=== PATIENT | female | born 1955 | race Two or more races ===

== ENCOUNTER 2018-05-29 14:10 | Inpatient (IN) | payer BC, OTHER ==
[~2018-05-29] VITALS: Ht 165.1 cm; Wt 81.0 kg
[2018-05-29 15:56] LABS: Alanine Aminotransferase 61 U/L (13-56); Anion Gap 12 (5-15); Aspartate Aminotransferase 31 U/L (15-37); BUN/Creatinine Ratio 7.6; Blood Urea Nitrogen 8 mg/dL (7-18); Calcium 8.8 mg/dL (8.5-10.1); Carbon Dioxide 23 mmol/L (21-32); Chloride 93 mmol/L (98-107); GFR African American 68 mL/min; GFR Non-African American 56 mL/min; Glucose 160 mg/dL (74-106); Magnesium 2.1 mg/dL (1.6-2.6); Potassium 3.4 mmol/L (3.5-5.1); Sodium 128 mmol/L (136-145)
[2018-05-29 16:00] LABS: Alkaline Phosphatase 85 U/L (45-117); Bilirubin, Total 1.2 mg/dL (0.2-1.0); Total Protein 7.8 g/dL (6.4-8.2)
[2018-05-29 16:10] LABS: Urine Bacteria FEW /hpf (None Seen); Urine Blood Negative /uL (Negative); Urine Specific Gravity 1.007 (1.001-1.035); Urine WBC 3 /hpf (0 - 5)
[2018-05-29 16:33] LABS: Basophils # (auto) 0 uL; Basophils % (auto) 0.4 % (0.0-2.0); Eosinophils # (auto) 0.1 uL; Eosinophils % (auto) 0.9 % (0.0-7.0); Hematocrit 43.1 % (36.0-46.0); Hemoglobin 14.7 g/dL (12.2-16.2); Lymphocytes # (auto) 1.8 uL; Lymphocytes % (auto) 26.4 % (10.0-50.0); Mean Corpuscular Hemoglobin 30.4 pg (28.0-32.0); Mean Corpuscular Hgb Conc. 34.2 g/dL (32.0-36.0); Mean Corpuscular Volume 89.1 fL (80.0-100.0); Monocytes # (auto) 0.7 uL; Monocytes % (auto) 10.2 % (0.0-12.0); Neutrophils # (auto) 4.3 uL; Neutrophils % (auto) 62.1 % (37.0-80.0); Nucleated Red Blood Cells % 0.3 %; Platelet Count (auto) 276 10^3/uL (140-450); Red Blood Cells 4.83 10^6/uL (4.0-5.20); Red Cell Distribution Width 13.1 % (11.8-14.3); White Blood Cell 6.9 10^3/uL (4.4-10.8)
[2018-05-29] MEDS ORDERED: SODIUM CHLORIDE 0.9% 500 ML IV ONE (17:10)
[2018-05-29] MEDS ORDERED: ONDANSETRON HCL 4 MG/2 ML VIAL IV ONE (17:15)
[2018-05-29] MEDS ORDERED: LORazepam 0.5 MG TAB PO ONE (17:15)
[2018-05-29] MEDS ORDERED: MORPHINE SULF INJ 2 MG/ML SYRINGE 1ML IV ONE (17:15)
[2018-05-30] MEDS ORDERED: ACETAMINOPHEN 500 MG TAB PO PRN (00:15)
[2018-05-30] MEDS ORDERED: POTASSIUM CHL 20 Meq TABLET PO ONE (00:15)
[2018-05-30] MEDS ORDERED: MORPHINE SULF INJ 2 MG/ML SYRINGE 1ML IV PRN (00:15)
[2018-05-30] MEDS ORDERED: ONDANSETRON HCL 4 MG/2 ML VIAL IV PRN (00:15)
--- NOTE | 2018-05-30 00:58 | NUR ---
RECEIVED PATIENT FROM ED VIA STRETCHER, AWAKE, ALERT, ORIENTED X4, AMBULATORY, SPEAKS CLEARLY. NO S/S OF RESPIRATORY DISTRESS, DENIES SOB AND CHEST PAIN. DENIES ABDOMINAL PAIN, NAUSEA, VOMITING AND DIARRHEA AT THE MOMENT. WITH IV ON THE RIGHT AC GAUGE 20. SKIN IS INTACT. ORIENTED ON PLAN OF CARE. BED IS LOCKED AND IN LOWEST LEVEL, SIDE RAILS UP X2, CALL LIGHT WITHIN REACH. WILL CONTINUE TO MONITOR
[2018-05-30 01:00] VITALS: BP 163/94
[2018-05-30] MEDS: SODIUM CHLORIDE 0.9% 1,000 ML IV SCH ×2 (01:06→16:55)
[2018-05-30] MEDS ORDERED: LINA1TAB PO (01:57)
[2018-05-30] MEDS ORDERED: BENZ100C97 PO (01:57)
[2018-05-30] MEDS ORDERED: LEVO25TA6 PO (01:57)
[2018-05-30] MEDS ORDERED: AMLO5TAB13 PO (01:57)
[2018-05-30] MEDS ORDERED: PANT1INJ3 PO (01:57)
[2018-05-30] MEDS ORDERED: TEMA30CA PO (01:57)
[2018-05-30] MEDS ORDERED: LOSA-49 PO (01:57)
[2018-05-30] MEDS ORDERED: LEVO-28 PO (01:57)
--- NOTE | 2018-05-30 02:00 | NUR ---
JOSE HOSPITALIST; PATIENT'S BLOOD PRESSURE IS ELEVATED, NO PRN MEDICATION ORDERED SPOKED WITH Marcellus DONATO, SHE WILL PUT AN ORDER
[2018-05-30] MEDS ORDERED: amLODIPine BESYLATE 5 MG TAB PO ONE (02:15)
[2018-05-30] MEDS ORDERED: TEMAZEPAM 15 MG CAP PO PRN (02:15)
[2018-05-30 05:06] VITALS: BP 132/75
[2018-05-30 05:51] LABS: Basophils # (auto) 0 uL; Basophils % (auto) 0.4 % (0.0-2.0); Eosinophils # (auto) 0.1 uL; Hematocrit 38.3 % (36.0-46.0); Hemoglobin 13.4 g/dL (12.2-16.2); Lymphocytes # (auto) 2.3 uL; Lymphocytes % (auto) 35.6 % (10.0-50.0); Mean Corpuscular Hemoglobin 30.8 pg (28.0-32.0); Mean Corpuscular Hgb Conc. 34.9 g/dL (32.0-36.0); Mean Corpuscular Volume 88.2 fL (80.0-100.0); Monocytes # (auto) 0.7 uL; Neutrophils # (auto) 3.3 uL; Nucleated Red Blood Cells % 0.1 %; Platelet Count (auto) 238 10^3/uL (140-450); Red Blood Cells 4.34 10^6/uL (4.0-5.20); Red Cell Distribution Width 13.2 % (11.8-14.3); White Blood Cell 6.4 10^3/uL (4.4-10.8)
[2018-05-30] MEDS ORDERED: DEXTROSE (50%) 50ML SYRG IV PRN (06:00)
[2018-05-30 06:10] LABS: Calcium 8.2 mg/dL (8.5-10.1); Potassium 3.4 mmol/L (3.5-5.1)
[2018-05-30 06:13] LABS: BUN/Creatinine Ratio 7.8
[2018-05-30] MEDS: ACCU-CHEK COMFORT CURVE STRIP VI SCH ×3 (06:30→18:38)
[2018-05-30] MEDS: InsuLIN REG 1unit/0.01ml Soln (100units/ml) SC SCH ×3 (06:30→18:38)
--- NOTE | 2018-05-30 06:49 | NUR ---
PATIENT'S OWN MEDICATIONS SENT TO PHARMACY. PATIENT WITH POM WRIST BAND
[2018-05-30] MEDS ORDERED: LEVOTHYROXINE SODIUM 25 MCG TAB PO SCH (07:00)
--- NOTE | 2018-05-30 07:27 | NUR ---
CARE ENDORSED TO AM SHIFT RN
--- NOTE | 2018-05-30 07:30 | NUR ---
Opening Shift Note Assuming care of patient at this time. Patient is resting in bed. Bed is locked and lowered with side rails up x2. Patient shows no signs or symptoms of distress or shortness of breath. Patient denies pain. Instructed patient on the plan of care for today and to call for assistance as needed. Call light within reach. Will continue to round hourly and as needed.
[2018-05-30 09:00] VITALS: BP 141/84
[2018-05-30] MEDS ORDERED: cefTRIAXone 1GM/50ML D5W 50 ML IV SCH (09:00)
[2018-05-30] MEDS ORDERED: PANTOPRAZOLE 40 MG TAB PO SCH (10:00)
[2018-05-30] MEDS ORDERED: LOSARTAN POTASSIUM 50 MG TAB PO SCH (10:00)
[2018-05-30 12:41] VITALS: BP 148/77
[2018-05-30 16:40] VITALS: BP 143/71
[2018-05-30 17:00] VITALS: BP 155/74
--- NOTE | 2018-05-30 19:15 | NUR ---
Discharge Discharge instructions given as ordered. Encourage to follow up with PMD as instructed. All questions and concerns addressed. Patient verbalized understanding. Home medications held in Pharmacy returned to patient. IV removed with catheter intact, pressure dressing applied. Patient taken to vehicle via wheelchair with all personal belongings, accompanied by staff and family member. No distress noted at time of departure.
[2018-05-31] MEDS ORDERED: amLODIPine BESYLATE 5 MG TAB PO SCH (10:00)
== END 2018-05-30 19:10 | disposition home or self-care (01) | DRG 392 ==
LOC: ER 14:10 → OVERFLOW 05-30 00:12 → WEST WING 05-30 00:58
PROVIDERS: ADMIT Internal Medicine; ATTEND Internal Medicine
DX: R10.9 Unspecified abdominal pain (principal); E87.1 Hypo-osmolality and hyponatremia; N39.0 Urinary tract infection, site not specified; F41.9 Anxiety disorder, unspecified; E03.9 Hypothyroidism, unspecified; E11.22 Type 2 diabetes mellitus with diabetic chronic kidney disease; E66.9 Obesity, unspecified; E86.0 Dehydration; E87.6 Hypokalemia; I12.9 Hypertensive chronic kidney disease with stage 1 through stage 4 chronic kidney disease, or unspecified chronic kidney disease; I70.8 Atherosclerosis of other arteries; K76.0 Fatty (change of) liver, not elsewhere classified; N18.3 Chronic kidney disease, stage 3 (moderate); Z90.49 Acquired absence of other specified parts of digestive tract; Z90.710 Acquired absence of both cervix and uterus; Z79.899 Other long term (current) drug therapy; Z80.8 Family history of malignant neoplasm of other organs or systems; Z88.0 Allergy status to penicillin
CPT/HCPCS: 36415; 70450; 74176; 80048; 80053; 81001; 82962; 83036; 83690; 83735; 84443; 84484; 85025; 96361; 96374; 96375; G0378; J0696; J1815; J2405